=== PATIENT | female | born 1940 | race Two or more races ===

== ENCOUNTER 2017-04-23 06:51 | Day surgery (SDC) | payer MEDICARE, OTHER ==
[~2017-04-23] VITALS: Ht 157.5 cm; Wt 63.5 kg
[2017-04-23] VITALS (8 sets, daily range): BP systolic 117–139; BP diastolic 59–75
--- NOTE | 2017-04-23 06:29 | Anethesia Preoperative Eval ---
Anesthesia Pre-op PMH/ROS General Date of Evaluation: Apr 23, 2017 Time of Evaluation: 06:27 Anesthesiologist: bro ASA Score: ASA 2 Mallampati Score Class I : Soft palate, uvula, fauces, pillars visible Class II: Soft palate, uvula, fauces visible Class III: Soft palate, base of uvula visible Class IV: Only hard plate visible Mallampati Classification: Class II Surgeon: roe Diagnosis: abdominl pain Surgical Procedure: egd/colonoscopy Anesthesia History: none Social History: smoking - nonsmoker Family History: no anesthesia problems Allergies: Coded Allergies: No Known Allergies (Unverified , 04/22/17) Medications: see eMAR Past Medical History Cardiovascular: Reports: HTN Endocrine: Reports: hypothyroidism PSxH Narrative: thyroidectomy Anesthesia Pre-op Phys. Exam Physician Exam Constitutional: NAD Neurologic: CN 2-12 intact Cardiovascular: RRR Respiratory: CTA Gastrointestinal: S/NT/ND Airway Exam Mallampati Score: Class II MO: full Neck: supple TMD: 2fb ROM: full Dentures: upper Anesthesia Pre-op A/P Risk Assessment & Plan Assessment: abdominal pain Plan: egd/colonoscopy Status Change Before Surgery: No Pre-Antibiotics Drug: RALPH Mendez Apr 23, 2017 06:29
[2017-04-23] MEDS ORDERED: Propofol 10mg/ml 20ml IV ONE (06:52)
[2017-04-23] MEDS ORDERED: Lidocaine 1% MPF 10mg/ml 5ml ONE (06:52)
[2017-04-23] MEDS ORDERED: LR 1000ml ONE (06:52)
[2017-04-23] MEDS ORDERED: LR 1000ml 1,000 ML IV SCH (07:00)
[2017-04-23] MEDS ORDERED: SPIRONOLACTONE1 EACH ORAL (07:27)
[2017-04-23] MEDS ORDERED: MAGNESIUM27 MG PO (07:27)
[2017-04-23] MEDS ORDERED: SIMVASTATIN5 MG ORAL (07:27)
[2017-04-23] MEDS ORDERED: SYNTHROID88 MCG ORAL (07:27)
[2017-04-23] MEDS ORDERED: COQ-1030 M1 PO (07:27)
[2017-04-23] MEDS ORDERED: DIOVAN HCT 3201 EACH ORAL (07:27)
[2017-04-23] MEDS ORDERED: MULTIVITAMINS1 EAC8 ORAL (07:28)
[2017-04-23] MEDS ORDERED: VITAMIN D400 INTLU ORAL (07:28)
[2017-04-23] MEDS ORDERED: LR 1000ml 1,000 ML IVLG SCH (07:50)
--- NOTE | 2017-04-23 07:50 | Immediate Post-Op Evaluation ---
Immediate Post-Op Evalulation Immediate Post-Op Evalulation Procedure: egd/colonoscopy Date of Evaluation: Apr 23, 2017 Time of Evaluation: 08:31 IV Fluids: lr 200ml Blood Products: none Estimated Blood Loss: negligible Blood Pressure Systolic: 119 Blood Pressure Diastolic: 63 Pulse Rate: 49 Respiratory Rate: 18 O2 Sat by Pulse Oximetry: 100 Temperature (Fahrenheit): 98.2 Pain Score (1-10): 0 Nausea: No Vomiting: No Complications none Patient Status: awake, reacts, patent Hydration Status: adequate Drug: RALPH Mendez Apr 23, 2017 07:50
--- NOTE | 2017-04-23 07:58 | Short Stay Surgery H&P ---
History of Present Illness History of Present Illness Chief Complaint Abdominal pains and history of colon polyps. ROBERTO Gutierrez is a 76 year old female who was admitted on for Abdominal Pain/ colon polyps Patient History Allergies: Coded Allergies: No Known Allergies (Unverified , 04/22/17) PAST MEDICAL HISTORY: (1) Hyperlipidemia (2) Hypertension Past Surgeries: Social History: Medication History Scheduled Levothyroxine Sodium* (Synthroid*), 88 MCG ORAL DAILY, (Reported) Multivitamin With Minerals (Multivitamins With Minerals*), 1 TAB ORAL DAILY, ( Reported) Simvastatin (Zocor), 5 MG ORAL BEDTIME, (Reported) Spironolact/Hydrochlorothiazid (Spironolactone-Hctz 25-25 Tab), 1 TAB ORAL DAILY , (Reported) Ubidecarenone (Coq-10), 30 MG PO DAILY, (Reported) Valsartan/Hydrochlorothiazide 320-12.5MG (Diovan Hct 320-12.5 Mg Tab), 1 TAB ORAL DAILY, (Reported) Vitamin D (Vitamin D3), 400 UNITS ORAL DAILY, (Reported) Miscellaneous Medications Magnesium Amino Acid Chelate (Magnesium), 27 MG PO, (Reported) Review of Systems Cardiovascular: Reports: no symptoms Respiratory: Reports: no symptoms Skeletal: Reports: no symptoms Gastrointestinal: Reports: gastro esophageal reflux disease, no symptoms Genitourinary: Reports: no symptoms Neurologic: Reports: no symptoms Endocrine: Reports: no symptoms Hematologic: Reports: no symptoms Physical Exam Vital Signs Last Vital Signs Date Time Temp Pulse Resp B/P Pulse Ox O2 Delivery O2 Flow Rate FiO2 04/23/17 07:18 98.2 60 20 139/75 99 Room Air Skin: normal HENT: normal Heart: normal Lungs: normal Abdomen: normal Extremities: normal Genitourinary: normal Plan Plan of Care Upper and lower GI endoscopies Preop Interventions none. Summary of Findings See the reports Final Diagnosis: Attestation Are the patient's medical conditions optimized for surgery? Attestation Response: yes BRAULIO KRUGER Apr 23, 2017 07:58
--- NOTE | 2017-04-23 07:59 | Pre-Procedure Note/Attestation ---
Pre-Procedure Note/Attestation Complete Prior to Procedure Planned Procedure: left Procedure Narrative: the endoscopic examination of the upper and the lower GI tract. Indications for Procedure Pre-Operative Diagnosis: R/O colon polyps/peptic ulcer Attestation I attest that I discussed the nature of the procedure; its benefits; risks and complications; and alternatives (and the risks and benefits of such alternatives ), prior to the procedure, with the patient (or the patient's legal in home sales representative). I attest that, if there was a reasonable possibility of needing a blood transfusion, the patient (or the patient's legal in home sales representative) was given the [place] [employer] standardized written summary, pursuant to the [place] Blood Safety Act ([place] Health and Safety Code # 1645, as amended). I attest that I re-evaluated the patient just prior to the surgery and that there has been no change in the patient's H&P, except as documented below: SLICKSAID Apr 23, 2017 07:59
[2017-04-23] MEDS ORDERED: Hydromorphone 0.5mg/0.5ml inj IVP PRN (08:00)
[2017-04-23] MEDS ORDERED: Atropine Inj 1mg/10ml Syr IV PRN (08:00)
[2017-04-23] MEDS ORDERED: Midazolam 2mg/2ml Inj IVP PRN (08:00)
[2017-04-23] MEDS ORDERED: DiphenhydrAMINE 50mg/ml Inj IVP PRN (08:00)
--- NOTE | 2017-04-23 08:22 | Endoscopy Procedure Note ---
Endoscopy Procedure Note Indication for Procedure: Abdominal pains and history of colon polyps. Procedures Performed: EGD - Completely normal upper GI endoscopy as also random gastric biopsy was also done., colonoscopy - Highly redundant left colon otherwise completely total normal colonoscopy. Specimen: yes Pt Tolerated Procedure Well: Yes Estimated Blood Loss: none Anesthesiologist: Dr. Emile Merino Anesthesia: moderate sedation Medication Given: see anesthesia record Implant(s) used?: No 50 yrs or older w/o bx or poly: Yes 10yrs. F/U not recommended: Yes 10 yrs. F/U needed: Yes 18 years or older w/prev. colo: Yes <3yrs. since last colonoscopy: No Med reason:<3 yrs.: System Reason:<3 yrs.: Last colonoscopy >= to 3yrs: No BRAULIO KRUGER Apr 23, 2017 08:22
--- NOTE | 2017-04-23 08:23 | Discharge Instructions ---
Discharge Instructions Discharge Instructions Follow up with: Visit the doctor in office after 2 weeks. For Congestive Heart Failure Reminder Report to your physician any weight gain of 5 pounds or more in one week. SLICK,BRAULIO Apr 23, 2017 08:23
--- NOTE | 2017-04-23 08:34 | 48 Hour Post Anesthesia Eval ---
Post Anesthesia Evaluation Procedure: egd/colonoscopy Date of Evaluation: Apr 23, 2017 Time of Evaluation: 08:33 Blood Pressure Systolic: 126 0: 63 Pulse Rate: 50 Respiratory Rate: 18 Temperature (Fahrenheit): 98.2 O2 Sat by Pulse Oximetry: 100 Airway: patent Nausea: No Vomiting: No Pain Intensity: 0 Cardiopulmonary Status: stable Mental Status/LOC: patient returned to baseline Post-Anesthesia Complications: none Follow-up care needed: N/A RALPH COKER Apr 23, 2017 08:34
--- NOTE | 2017-04-23 14:30 | Operative Note - Dictated ---
DATE OF OPERATION: 04/23/2017 PROCEDURE PERFORMED: Esophagogastroduodenoscopy with biopsy. PREOPERATIVE DIAGNOSIS: Abdominal pain. POSTOPERATIVE DIAGNOSIS: Completely normal upper gastrointestinal endoscopy. Biopsy was taken per random from gastric body. MEDICATIONS USED: Per Dr. Jimenez. INSTRUMENT: GIF Olympus upper gastrointestinal video endoscope. DESCRIPTION OF PROCEDURE: The patient after arriving endoscopy unit, was told about risks and benefits of the procedure, which she accepted and signed the informed consent. At this time, she was put on the left lateral decubitus position. After adequate IV sedation, the scope was gently passed through the cricopharyngeal area, was lodged into the upper esophagus and gradually advanced towards gastroesophageal junction. The entire length of the esophagus was normal and no evidence of any pathology such as inflammatory process, stricture, exudate, etc, was found. The GE junction also looked normal and there was no any evidence of Terrell's or hiatal hernia. At this point, the scope was advanced into the stomach. Gastric cavity was distended with insufflation of air and the areas of the fundus and the body and the antrum were examined in an superintendent electric power fashion, which revealed normal gastric mucosa without any particular finding including polyps, tumors, ulcers, etc. One random biopsy from gastric body obtained and subsequently, scope was passed through normal looking pylorus. First and second portion of duodenum looked all normal. Finally, the scope was pulled out and the procedure was terminated. The patient tolerated the procedure well. Said Kate Hassan DR: KENDALL JOB#: [id number] CC:
--- NOTE | 2017-04-23 14:45 | Operative Note - Dictated ---
DATE OF OPERATION: 04/23/2017 PROCEDURE: Total colonoscopy. PREOPERATIVE DIAGNOSES: 1. History of colon polyp. 2. Abdominal pain. POSTOPERATIVE DIAGNOSIS: Highly redundant left colon, otherwise complete normal total colonoscopy. MEDICATION USED: Per Dr. Quevedo. INSTRUMENT: GIF Olympus video colonoscope. DESCRIPTION OF PROCEDURE: The patient after arriving endoscopy unit, was told about the risks and benefits of the procedure, which she accepted and signed the informed consent. She was then put in the left lateral decubitus position. After adequate IV sedation, the scope was gradually passed through the anal area. A retroflexion maneuver, which was applied in the unit did not reveal any abnormality including major hemorrhoids, ulcers, tumors, etc. At this time, the scope was passed through a very highly redundant left colon and in the colon was straightened and gradually reached towards the splenic flexure. This area was also normal and no evidence of any pathology including polyps found. At this point, the scope was advanced into the transverse colon and gradually pushed over towards the hepatic flexure and guided into the right colon all the way to the base of the cecum. All these areas again remained to be completely normal. The colon cleanup was adequate, and at this point, within 7 minutes, the scope was gradually pulled out and no other pathology found. The patient tolerated the procedure well and left the endoscopy room in a good condition. Said Kate Hassan DR: KENDALL JOB#: [id number] CC:
== END 2017-04-23 10:00 | disposition home or self-care (01) ==
LOC: GAS 06:51
DX: R10.9 Unspecified abdominal pain (principal); Z86.010 Personal history of colon polyps; Q43.8 Other specified congenital malformations of intestine; K29.50 Unspecified chronic gastritis without bleeding; K21.9 Gastro-esophageal reflux disease without esophagitis; I10 Essential (primary) hypertension; E78.5 Hyperlipidemia, unspecified; E89.0 Postprocedural hypothyroidism
CPT/HCPCS: 43239; 45378; J2704; J7120; 94003; 94150